=== PATIENT | male | born 1930 | race Caucasian/White ===

== ENCOUNTER → 2016-10-16 | Outpatient (CLI) | payer OTHER ==
[~2016-10-16] MED LIST: ACCUNEB SO1.25 MG/1 INH; ACIDOPHILUS LA1 EACH PO; ACTIGALL300 MG PO; ADVAIR HFA 230M12 GM INH; ADVAIRDISKUS INH; ALBUTEROL INH INH; ALBUTEROL2.5 MG/0.5 INH; ALEVE220 M1; AMOXICILLIN 50500 MG; AMOXICILLIN875 MG PO; APAP650 PO; ASA5UEC PO; ASPIR 8181 M1 PO; ASPIRIN EC81 M1 PO; ASPIRIN325 PO; ATROVENT IH; ATROVENT15 ML NS; ATROVENT30 ML INH; AUGMENTIN 875875 MG PO; AZITHROMYCIN 2250 MG PO; BENADRYL25 MG PO; CALCITONIN-SAL3.7 ML NS; CARDIZEM CD180 MG PO; CEFTAZIDIM1 GM/50 ML IV; CEFTIN 250 MG250 MG PO; CEFUROXIME250 MG PO; CEPACOL SORE T1 EAC7 PO; CEPHALEXIN 250250 MG PO; CIPRO PO; CIPROFLOXACIN500 M1 PO; COLACE 100 MG100 MG PO; COLACE100 MG PO; COUMADIN7.5 MG PO; DEMADEX20 MG PO; DILTIAZEM ER240 M1 PO; DOXYCYCLINE 10100 M1 PO; DOXYCYCLINE 10100 MG PO; ENOXAPARIN60 MG/0.1 SUBQ; FLOMAX PO; FLONASE 0.05%50 MCG NASAL; FLONASE 0.05%50 MCG NS; HYDROCODON-ACE1 EACH PO; HYDROCODONE-AP1 EAC6 PO; LASIX 20 MG TAB20 MG PO; LASIX 40 MG TAB40 M2 PO; LEVOTHYROXIN0.137 M1 PO; LO-DOSE ASPIRIN81 M1 PO; LORATIDINE 10 M10 M1 PO; MAXALT; MEDROLDOSEPACK PO; MELOXICAM7.5 MG PO; MIRALAX17 GM PO; MUCINEX TA600 MG/TA1 PO; MUCINEX TA600 MG/TA2 PO; MUCINEX600 MG PO; NABUMETONE 500500 M1 PO; NEILMED SINUS; NEURONTIN 300300 M1 PO; PERCOCET 10-321 EACH PO; POTASSIUM20 PO; PREDNISONE 10 M10 M1 PO; PREDNISONE 10 M10 MG PO; PREDNISONE 20 M20 M1 PO; PREDNISONE 20 M20 MG PO; PREDNISONE 5 MG5 MG PO; PROBIOTIC1 EAC1 PO; PROTONIX40 M2 PO; ROCEPHIN 1 GM VL1 G1 IM; SYNTHROID125 MCG PO; SYNTHROID137 MCG PO; TAMSULOSIN HCL0.4 M1 PO; TAMSULOSIN HCL0.4 MG PO; TESSALON PERLE100 MG PO; TOBI 300 M300 MG/5 M; TOBRAMYCIN300 MG/7.5 INH; TRAMADOL 50 MG50 MG PO; UROXATRAL PO; VENTOLIN HFA 1818 GM INH; VITAMIN B-12500 MCG PO; VITAMIN B12 INJECTION; VITAMIN B12-FO1 EAC1 PO; XOPENEX 0.63 MG/3 M1 IH; XOPENEX 0.63 MG/3 M1 NS; ZPAC; ZPAK PO; bayer PO
== END ==
LOC: RAD 14:00
DX: J47.9 Bronchiectasis, uncomplicated (principal); R06.02 Shortness of breath; J44.9 Chronic obstructive pulmonary disease, unspecified